=== PATIENT | female | born 1985 | race Caucasian/White ===

== ENCOUNTER 2024-06-25 00:07 | Emergency (ER) | payer BC ==
[2024-06-25 00:39] VITALS: PULSE 118; RESP 16; O2SAT 100
[2024-06-25] MEDS ORDERED: XAR15 MT (01:51)
[2024-06-25] MEDS: RIVAROXABAN 15 MG TABLET PO STA (02:42)
== END 2024-06-25 02:47 | disposition home or self-care (01) ==
LOC: EDBD 00:07 → ER 00:07 → EDSEX 00:07 → ER 02:47
DX: I82.402 Acute embolism and thrombosis of unspecified deep veins of left lower extremity (principal); Z98.890 Other specified postprocedural states
CPT/HCPCS: 93971; 99284; Z7610